=== PATIENT | female | born 1990 | race Caucasian/White ===

== ENCOUNTER 2019-03-25 15:45 | Outpatient (CLI) | payer MEDICAID, SELFPAY ==
--- NOTE | 2019-03-25 | US_ITS ---
WS: [id number] OB ultrasound, 03/25/2019 Clinical Data: LLQ CRAMPING Comparison: None. Findings: There is a single interuterine . Twin A: heart rate is 120 beats per minute. There is a yolk sac measuring 0.56 cm. The crown-rump length measured 0.7 cm. The estimated gestational age 6w4d is with an SUNIL of approximately 11/14/2019. Twin B: heart rate is 131 bpm. There is a yolk sac measuring 0.57 cm. [place]-rump length measured 0.72 cm. The estimated gestational age is 6 weeks 4 days with an SUNIL of approximately 11/14/2019. The left ovary measured 3.9 cm x 2.5 cm x 4.0 cm. The right ovary measured 1.7 cm x 2.5 cm x 3.5 cm. No ovarian cyst or masses are seen. 2. A: Estimated gestational age of 6w4d with an SUNIL of 11/14/2019.with a heart rate 120 beats per minute. 3. Fetus B: Estimated gestational age of 6 weeks 4 days with an SUNIL of 11/14/2019 the heart rate of 131 bpm. US/US OB <= 14 wk fetus twins Impression: 1. Twin .
== END 2019-03-25 15:46 | disposition home or self-care (01) ==
LOC: RAD 15:48
PROVIDERS: Family Provider Family Medicine; PCP Nurse Practitioner Family; Visit Provider Nurse Practitioner Family
DX: O26.851 Spotting complicating pregnancy, first trimester (principal); O30.001 Twin pregnancy, unspecified number of placenta and unspecified number of amniotic sacs, first trimester; Z3A.01 Less than 8 weeks gestation of pregnancy
CPT/HCPCS: 76801; 76802

== ENCOUNTER 2019-04-02 18:13 | Emergency (ER) | payer MEDICAID, SELFPAY ==
[2019-04-02 18:44] VITALS: BP 126/82; PULSE 80; RESP 17; TEMP 36.8; O2SAT 100; BMI 24.8
--- NOTE | 2019-04-02 19:02 | ED_ITS ---
Entered by Jagruti Melara, acting as scribe for Tiffanie Schmidt MD, [facility] [place] Apr 02, 2019 18:13 HPI - Headache General: Chief Complaint: Headache Stated Complaint: SENT BY URGENT CARE Time Seen by Provider: 04/02/19 19:01 Source: patient Mode of arrival: ambulatory Limitations: no limitations History of Present Illness: HPI Narrative: 28 yo Female presents to ED with complaint of headache. Pt states that she has had the headache for 4 days. Pt states that she woke up with a knot on her forehead this morning. Pt states that she is about 7 weeks 6 days with twins. Pt states that she was told last week that she has a hemorrhage between the two babies and she is going to see an EDUCATIONAL PSYCHOLOGY PROFESSOR in [place] on the 08 of April. 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 Pt states that she has a history of Pre- eclampsia. Pt states that she has a history of headaches but they are worse during . MD elicited complaint: headache Onset (ago): day(s) (4) Onset description: gradually Location: generalized Exacerbating factors: none Relieving factors: nothing Associated symptoms: Deny chest pain, fever(s), lightheadedness, nausea, rash or vomiting Treatments prior to arrival: acetaminophen Review of Systems General: Reports: 10 or more systems reviewed and unremarkable except in HPI and below Const: Denies: fever, chills or body aches Eyes: Denies: change in vision, blurry vision or blind spots ENMT: Denies: throat pain, enlarged tonsils, painful swallowing, hoarseness or mouth pain Card: Denies: chest pain, palpitations, irregular heart rhythm, swelling of feet/ankles or lightheadedness Resp: Denies: shortness of breath, productive cough or non-productive cough GI: Denies: abdominal pain, nausea or vomiting : Denies: flank pain, difficulty urinating, painful urination, urinary frequency or urinary urgency Musc: Denies: neck pain, back pain, extremity pain or extremity swelling Skin/Breast: Denies: rash, itching or redness Neuro: Reports: headache; Denies: numbness in extremities or weakness in extremities Endo: Denies: excessive urination, excessive thirst or tired all the time PFSH ED PFSH: Statuses (acute, chronic, etc) shown below reflect problem list status as previously entered and may not be historically accurate Social History Smoking and tobacco status: former smoker Physical Exam Const: COMMON NORMALS: no apparent distress, average body habitus, oriented x3, no limitations, healthy appearing, alert and well nourished HENMT: COMMON NORMALS: normocephalic, head/scalp atraumatic, hearing grossly normal bilaterally, external ears normal, EAC's normal, TM's normal bilaterally, external nose normal, nasal mucous membranes and turbinates normal, moist oral mucous membranes, oropharynx normal, dentition normal and gingiva normal HEAD & SCALP: normocephalic and atraumatic NOSE: external nose normal and nasal mucous membranes and turbinates normal EXTERNAL EAR: Yes external ears normal EXTERNAL AUDITORY CANAL: EAC's normal TYMPANIC MEMBRANE: TM's normal bilaterally Eye: COMMON NORMALS: PERRL, EOMs intact bilaterally, conjunctivae normal, no scleral icterus, no papilledema, normal visual tolentino by confrontation and fundi normal bilaterally CONJUNCTIVA: Yes conjunctivae normal PUPIL: Yes PERRL DIRECT OPHTHALMOSCOPY: Yes no papilledema and Yes fundi normal bilaterally Neck/C-Spine: COMMON NORMALS: full ROM, supple, no meningeal signs, no JVD and no carotid bruits Chest: COMMONS NORMALS: inspection of chest normal and palpation of chest no rmal Resp: COMMON NORMALS: normal respiratory effort, no retractions, no use of accessory muscles, clear to auscultation bilaterally and percussion normal AUSCULTATION: clear to auscultation bilaterally PERCUSSION: percussion normal Cardio: COMMON NORMALS: no JVD, regular rate, regular rhythm, S1 normal heart sound, S2 normal heart sound, no gallops, no clicks, no murmurs, no rub and peripheral pulses 2+ throughout RATE: regular rate RHYTHM: regular rhythm HEART SOUNDS: S1 normal and S2 normal PERIPHERAL PULSES: pulses 2+ th roughout GI: COMMON NORMALS: normal to inspection, nondistended, normoactive bowel sounds, soft to palpation, non-tender, no hepatosplenomegaly, no masses and no bruits PALPATION: Yes soft and Yes no hepatosplenomegaly : COMMON NORMALS: Yes no CVA tenderness BLADDER/KIDNEY EXAM: Yes no CVA tenderness Back/Pelvis: COMMON NORMALS: no CVA tenderness Extremity: COMMON NORMALS: normal to inspection, full ROM, normal capillary refill, no joint enlargement, no clubbing, cyanosis or edema, no calf tenderness and no pedal edema Neuro: COMMON NORMALS: oriented x3 SENSORIUM/ORIENTATION: Yes alert MENINGEAL SIGNS: Yes no meningeal signs Skin: COMMON NORMALS: no rashes or lesions noted, no wounds, skin turgor normal, no jaundice, no petechiae and no mottling GENERAL SKIN EXAM: no rashes or lesions noted and turgor normal Course Reevaluation(s): Reevaluation #1: Patient feels much better. Headache resolved. Discussed her labs with her including urinalysis that was negative for protein. Blood pressure normal. She is unlikely to have preeclampsia. Since she has chronic headaches this is likely a chronic headache. She is discharged to follow-up with her primary care provider. Time: 21:50 Vital Signs: Vital signs: Vital Signs Temperature 98.2 F 04/02/19 18:44 Pulse Rate 77 04/02/19 20:43 Respiratory Rate 16 04/02/19 20:43 Blood Pressure 124/70 04/02/19 20:43 Pulse Oximetry 100 04/02/19 20:43 MDM - Headache MDM Narrative: Medical decision making narrative: 28-year-old female patient who is 7 weeks with twins and presented with headaches. She has chronic headaches that she gets regularly but denies that they are migraines. She claims her headaches get worse in and this is an episode that has been persistent for the last 4 days. Evaluation in the ED was unremarkable including negative work-up for preeclampsia. Her headache was relieved with IV Benadryl and Reglan. She is discharged home on conservative measures and to follow-up with her campus safety officer as scheduled. She is also to follow-up with her primary care provider. Lab Data: Labs: Lab Results 04/02/19 04/02/19 04/02/19 Range/Units 19:55 19:55 20:15 WBC 6.8 (4.0-10.0) 10^3/ uL RBC 4.09 L (4.1-5.3) 10^6/u L Hgb 13.0 (11.5-15.3) g/dL Hct 38.8 (37.0-47.0) % MCV 94.9 (81-99) fL MCH 31.8 (28.0-34.0) pg MCHC 33.5 (30.0-36.0) g/dL RDW 13.0 (12.1-15.1) % Plt Count 197 (130-400) 10^3/c mm MPV 10.5 H (7.4-10.4) fL Neut % (Auto) 65.7 % Lymph % (Auto) 25.7 % [place] % (Auto) 7.2 % Eos % (Auto) 1.0 % Baso % (Auto) 0.1 % Neut # (Auto) 4.4 (1.8-7.7) 10^3/u L Lymph # (Auto) 1.7 (0.8-4.8) 10^3/u L [place] # (Auto) 0.5 (0.2-0.9) 10^3/u L Eos # (Auto) 0.1 (0.0-0.8) 10^3/u L Baso # (Auto) 0.0 (0.0-0.1) 10^3/u L Nucleated RBC % (a uto) 0 % Nucleated RBCs # 0.0 /100WBC Sodium 137 (136-145) mmol/L Potassium 3.5 (3.5-5.1) mmol/L Chloride 100 (98-107) mmol/L Carbon Dioxide 27 (22-29) mmol/L Anion Gap 13.5 (5-19) BUN 7 (6-20) mg/dL Creatinine 0.5 (0.5-0.9) mg/dL GFR Calculation 144.9 H (90-130) mL/min Glucose 70 L (74-109) mg/dL Calcium 9.9 (8.6-10.0) mg/Dl Total Bilirubin 0.3 (0.15-1.2) mg/dL AST 16 (0-32) U/L ALT 10 (0-33) U/L Alkaline Phosphata se 60 (35-105) IU/L Total Protein 7.9 (6.6-8.7) g/dL Albumin 4.4 (3.5-5.2) g/dL Globulin 3.5 (1.3-4.6) g/dL Urine Color Straw (Yellow) Urine Appearance Clear (CLEAR) Urine pH 5 (5-7) Ur Specific Gravit y 1.005 (1.005-1.030) Urine Protein Neg (Negative) Urine Glucose (UA) Norm (Normal) Urine Ketones Negative (Negative) Urine Occult Blood Neg (Negative) Urine Nitrate Negative (Negative) Urine Bilirubin Neg (NEGATIVE) Urine Urobilinogen Norm (Negative) mg/dL Ur Leukocyte [place] ase Negative (Negative) Discharge Plan Discharge Patient Disposition: Home, Self-Care Clinical Impression: Headache Qualifiers: Headache type: other headache syndrome Qualified Code(s): G44.89 - Other headache syndrome Condition: Stable Prescriptions: No Action prenat.vits,junie,[id number] Tablet 1 tab PO QDAY RF: 0 acetaminophen [Tylenol] 325 mg capsule 650 mg PO Q6H PRNRF: 0 Discharge Orders: Discharge Order (Routine); Ordered 04/02/19 Ordered By: Tiffanie Schmidt Referrals: Armin Frazier Jr, MD [Family Provider] - 1-3 days Blackburn,HORACE Greer [Primary Care Provider] - Activity Restrictions/Additional Instructions: Return for any new or worsening symptoms. Follow-up with your campus safety officer as scheduled. Drink plenty of fluids to keep well-hydrated. Have plenty of rest. Coding Level of Care Code ED Fleet Operations Manager for Chg Fwd Exam Problem Focused The documentation recorded by the Kelton perez Carmen, accurately reflects the service I personally performed and the decisions made by Roxana kate Adegoke I, MD, [facility] [place] Apr 02, 2019 18:13
[2019-04-02 20:15] LABS: Basophils % 0.1 %; Eosinophils # 0.1 10^3/uL (0.0-0.8); Hematocrit 38.8 % (37.0-47.0); Lymphocytes # 1.7 10^3/uL (0.8-4.8); Lymphocytes % 25.7 %; Mean Corpuscular HGB Conc 33.5 g/dL (30.0-36.0); Mean Corpuscular Hemoglobin 31.8 pg (28.0-34.0); Mean Corpuscular Volume 94.9 fL (81-99); Mean Platelet Volume 10.5 fL (7.4-10.4); Monocytes # 0.5 10^3/uL (0.2-0.9); Monocytes % 7.2 %; Neutrophils # 4.4 10^3/uL (1.8-7.7); Neutrophils % 65.7 %; Nucleated Red Blood Cells % 0 %; Platelet Count 197 10^3/cmm (130-400); Red Blood Count 4.09 10^6/uL (4.1-5.3); White Blood Count 6.8 10^3/uL (4.0-10.0)
[2019-04-02 20:30] LABS: Alanine Aminotransferase 10 U/L (0-33); Albumin Level 4.4 g/dL (3.5-5.2); Alkaline Phosphatase 60 IU/L (35-105); Anion Gap 13.5 (5-19); Aspartate Amino Transferase 16 U/L (0-32); Blood Urea Nitrogen 7 mg/dL (6-20); Calcium 9.9 mg/Dl (8.6-10.0); Carbon Dioxide 27 mmol/L (22-29); Chloride 100 mmol/L (98-107); Globulin 3.5 g/dL (1.3-4.6); Glomerular Filtration Rate 144.9 mL/min (90-130); Glucose 70 mg/dL (74-109); Potassium 3.5 mmol/L (3.5-5.1); Sodium 137 mmol/L (136-145); Total Bilirubin 0.3 mg/dL (0.15-1.2); Total Protein 7.9 g/dL (6.6-8.7)
[2019-04-02 20:36] LABS: Add Urine Microscopic? NO
[2019-04-02 20:39] LABS: Bilirubin Urine Neg (NEGATIVE); Blood Urine Neg (Negative); Glucose Urine UA Norm (Normal); Ketones Urine Negative (Negative); Leukocyte Esterase Urine Negative (Negative); Nitrate Urine Negative (Negative); Protein Urine Neg (Negative); Specific Gravity, Urine 1.005 (1.005-1.030); Urine Appearance Clear (CLEAR); Urine Color Straw (Yellow); Urobilinogen Urine Norm (Negative); pH Urine 5 (5-7)
[2019-04-02 20:43] VITALS: BP 124/70; PULSE 77; RESP 16; O2SAT 100
[2019-04-02] MEDS: diphenhydrAMINE 50 mg/mL SDV 1mL 25 MG IVP (21:03)
[2019-04-02] MEDS: metoclopramide 5 mg/mL SDV 2 mL 10 MG IVP (21:04)
[2019-04-02] MEDS: sodium chloride 0.9% 1,000 ML 999 ML IV (21:07)
[2019-04-02 22:02] VITALS: BP 111/58; PULSE 78; RESP 18; O2SAT 98
== END 2019-04-02 22:03 | disposition home or self-care (01) ==
PROVIDERS: Emergency Provider Family Medicine; Family Provider Family Medicine; PCP Nurse Practitioner Family
DX: G44.89 Other headache syndrome (principal); Z87.891 Personal history of nicotine dependence
CPT/HCPCS: 36415; 80053; 81003; 85025; 96360; 96374; 99282; J1200; J2765; J7030

== ENCOUNTER 2020-07-16 14:27 | Outpatient (CLI) | payer MEDICAID, SELFPAY ==
--- NOTE | 2020-07-16 14:34 | USCV_ITS ---
Mary Tsai Age: 30 Gender: F : 1990 Exam Date: 07/16/2020 14:50 Ordering Phys: Zoey Blackburn INSURANCE RISK MANAGER Technologist: Nury Wheeler Exam Location: [facility] [place]_ Indication: LLE PAIN AND SWELLING HISTORY: Lower extremity pain. Lower extremity swelling. PROCEDURES: Venous duplex imaging was performed in only the left lower extremity. The following venous structures were evaluated: common femoral vein, profunda vein, proximal portion of the greater saphenous vein, superficial femoral vein, and the popliteal vein. In addition, the posterior tibial and peroneal trunk were evaluated. Serial compression, augmentation maneuvers, and spectral Doppler flow evaluation were performed. FINDINGS: No evidence of DVT seen in any vessel visualized at this time. Azael Rico MD (Electronically Signed) Final Date: 16 Jul 2020 17:53 S
== END 2020-07-16 14:28 | disposition home or self-care (01) ==
LOC: RAD 14:31
PROVIDERS: PCP Nurse Practitioner Family; Visit Provider Nurse Practitioner Family
DX: M79.605 Pain in left leg (principal); M79.662 Pain in left lower leg; I83.813 Varicose veins of bilateral lower extremities with pain
CPT/HCPCS: 93971

== ENCOUNTER → 2022-10-25 09:55 | Outpatient (BNVA) | payer MEDICAID, SELFPAY | PROVIDERS: PCP Nurse Practitioner Family; Visit Provider Nurse Practitioner Family | DX: R39.9 Unspecified symptoms and signs involving the genitourinary system (principal); N30.01 Acute cystitis with hematuria | CPT/HCPCS: 81000 ==

== ENCOUNTER 2023-06-04 15:53 | Emergency (ER) | payer OTHER, MEDICAID, SELFPAY ==
[2023-06-04 15:56] VITALS: BP 132/87; PULSE 94; RESP 18; TEMP 36.6; O2SAT 100; BMI 28.1
--- NOTE | 2023-06-04 16:09 | ED_ITS ---
HPI - General Adult 2 General: Chief complaint: General Medical Stated complaint: body aches Time Seen by Provider: 06/04/23 16:03 History of Present Illness: 33-year-[facility] that she has generalized fatigue and malaise. She has been seen by Dr. Coronel on 04/23/2023 for polyarthralgia. She states she has been seen by rheumatology clinic and is currently on a low-dose of steroid. She states she has increased generalized myalgias from head to toe today. She states she also has had a 10 pound weight gain. The patient has provided me her recent lab results and it does appear that she is positive for a history of ehrlichiosis. Associated symptoms: Reports malaise; Deny chest pain or dyspnea Review of Systems 2 General: Reports: 10 or more systems reviewed and unremarkable except in HPI and below Const: Reports: fatigue and malaise; Denies: fever(s) or chills Card: Denies: chest pain Resp: Denies: dyspnea PFSH ED 2 PFSH: Social History Smoking and tobacco/nicotine status: former use of tobacco/nicotine Physical Exam 2 Narrative: EXAM NARRATIVE: Constitutional: the patient appears well nourished and of normal development. Vital signs as documented. No acute distress at present. Alert and oriented-to person, place, time and situation. Head, eyes, ears, nose, mouth, throat: Normocephalic, atraumatic. Pupils-equal, round, reactive to light. No scleral icterus. Normal-appearing external ears. Normal appearing nasal turbinates, no drainage. No obvious oral lesions, posterior oropharynx without erythema or exudates. Neck: Supple, trachea is midline, no lymphadenopathy, no jugular venous distension, thyromegaly, or carotid bruits. Carotid upstrokes are brisk bilaterally. Lungs: clear to auscultation to all lung tolentino. Symmetrical rise and fall of chest, no obvious signs of increased work of breathing at present. Cardiac: Regular rate and rhythm, positive S1, S2. No murmurs, rubs or gallops that I can appreciate Abdomen: Soft, non-tender to palpation, normal active bowel sounds to all quadrants. No palpable masses, no organomegaly and abdominal bruits. Extremities: 2+ pulses in the upper extremities that are equal bilaterally, 2+ pulses in the lower extremities that are equal bilaterally. Non-edematous. Moves all extremities well, sensation to all extremities are noted. Skin: Warm, dry, intact. Course 2 Vital Signs: Vital signs: Vital Signs Temperature 97.8 F 06/04/23 15:56 Pulse Rate 77 06/04/23 17:54 Respiratory Rate 18 06/04/23 15:56 Blood Pressure 136/84 06/04/23 17:54 Pulse Oximetry 99 06/04/23 17:54 Oxygen Delivery Me thod Room Air 06/04/23 17:54 MDM - General Adult Medical Decision Making Physical exam completed and documented I will obtain a CBC and a CMP urinalysis and urine drug screen and provide the patient Toradol. Differential Diagnosis Medication side effect of steroids, rheumatoid arthritis, dehydration, electrolyte abnormality. Medical Records I reviewed the patient's medical records. Lab Data I reviewed the patient's lab results. 06/04/23 16:58 06/04/23 16:58 Laboratory Results WBC 4.88 10^3/uL (3.29-11.43) 06/04/23 16:58 RBC 4.19 10^6/uL (3.85-5.65) 06/04/23 16:58 Hgb 12.60 g/dL (11.27-16.99) 06/04/23 16:58 Hct 38.5 % (36-47) 06/04/23 16:58 MCV 91.9 fl (85-98) 06/04/23 16:58 MCH 30.1 pg (27-33) 06/04/23 16:58 MCHC 32.7 g/dL (30-55) 06/04/23 16:58 RDW 12.8 % (12.1-15.1) 06/04/23 16:58 Plt Count 168 10^3/cmm (157-399) 06/04/23 16:58 MPV 10.2 fL (7.4-10.4) 06/04/23 16:58 Neut % (Auto) 85.8 % 06/04/23 16:58 Lymph % (Auto) 11.3 % 06/04/23 16:58 [place] % (Auto) 2.5 % 06/04/23 16:58 Eos % (Auto) 0.2 % 06/04/23 16:58 Baso % (Auto) 0.0 % 06/04/23 16:58 Neut # (Auto) 4.19 10^3/uL (1.8-7.7) 06/04/23 16:58 Lymph # (Auto) 0.6 10^3/uL (0.8-4.8) L 06/04/23 16:58 [place] # (Auto) 0.1 10^3/uL (0.2-0.9) L 06/04/23 16:58 Eos # (Auto) 0.0 10^3/uL (0.0-0.8) 06/04/23 16:58 Baso # (Auto) 0.0 10^3/uL (0.0-0.1) 06/04/23 16:58 Nucleated RBC % (auto) 0 % 06/04/23 16:58 Nucleated RBCs # 0.0 /100WBC 06/04/23 16:58 Sodium 140 mmol/L (136-145) 06/04/23 16:58 Potassium 4.4 mmol/L (3.5-5.1) 06/04/23 16:58 Chloride 106 mmol/L (98-107) 06/04/23 16:58 Carbon Dioxide 25 mmol/L (22-29) 06/04/23 16:58 Anion Gap 13.4 (5-19) 06/04/23 16:58 BUN 13 mg/dL (6-20) 06/04/23 16:58 Creatinine 0.7 mg/dL (0.5-0.9) 06/04/23 16:58 GFR Calculation 95.2 mL/min (90-130) 06/04/23 16:58 Glucose 104 mg/dL (65-115) 06/04/23 16:58 Calculated Osmolality 290 mOsm/kg (285-295) 06/04/23 16:58 Calcium 9.3 mg/dL (8.5-10.5) 06/04/23 16:58 Total Bilirubin 0.2 mg/dL (0.15-1.2) 06/04/23 16:58 AST 17 U/L (0-32) 06/04/23 16:58 ALT 13 U/L (0-33) 06/04/23 16:58 Alkaline Phosphatase 75 U/L (35-105) 06/04/23 16:58 Total Protein 7.1 g/dL (6.6-8.7) 06/04/23 16:58 Albumin 3.8 g/dL (3.5-5.2) 06/04/23 16:58 Globulin 3.3 g/dL (1.3-4.6) 06/04/23 16:58 HCG, Qual Negative (Negative) 06/04/23 18:03 Urine Color Straw (Yellow) 06/04/23 18:03 Urine Appearance Sl hazy (CLEAR) A 06/04/23 18:03 Urine pH 5 (5-7) 06/04/23 18:03 Ur Specific [place] 1.010 (1.005-1.030) 06/04/23 18:03 Urine Protein Neg (Negative) 06/04/23 18:03 Urine Glucose (UA) Norm (Normal) 06/04/23 18:03 Urine Ketones Negative (Negative) 06/04/23 18:03 Urine Blood 2+ (Negative) H 06/04/23 18:03 Urine Nitrate Negative (Negative) 06/04/23 18:03 Urine Bilirubin Neg (Negative) 06/04/23 18:03 Urine Urobilinogen Norm mg/dL (Negative) 06/04/23 18:03 Ur Leukocyte Esterase 1+ (Negative) H 06/04/23 18:03 Urine RBC 5-10 /hpf (0-2) H 06/04/23 18:03 Urine WBC 5-10 /hpf (0-5) H 06/04/23 18:03 Ur Squamous Epith Cells 10-15 /hpf (0-5) H 06/04/23 18:03 Amorphous Sediment Not Reportable 06/04/23 18:03 Urine Bacteria 2+ /hpf (NONE) H 06/04/23 18:03 Urine Mucus 1+ /hpf 06/04/23 18:03 Urine Opiates Screen Negative ng/mL (Negative) 06/04/23 18:03 Ur Barbiturates Screen Negative ng/mL (Negative) 06/04/23 18:03 Ur Phencyclidine Scrn Negative ng/mL (Negative) 06/04/23 18:03 Ur Amphetamines Screen Negative ng/mL (Negative) 06/04/23 18:03 U Benzodiazepines Scrn Negative ng/mL (Negative) 06/04/23 18:03 Urine Cocaine Screen Negative ng/mL (Negative) 06/04/23 18:03 U Marijuana (THC) Screen Negative ng/mL (Negative) 06/04/23 18:03 No radiology studies performed this visit Discharge Plan Discharge Patient Disposition: Home Clinical Impression: Polyarthralgia, Ehrlichiosis chafeensis (E. chafeensis) Condition: Stable Prescriptions: New cephalexin 500 mg capsule 500 mg PO BID 7 Days Qty: 14 0RF No Action ibuprofen 800 mg tablet 800 mg PO Q8H PRN (Reason: pain) Qty: 30 0RF prednisone 5 mg tablet 5 mg PO QAM Rx Instructions: (HAS 2 DAYS LEFT OF 06/04/23 WAS ON TITRATING DOSE) Tylenol Arthritis 650 mg Tablet Extended Release 1,300 mg PO BEDTIME Discharge Orders: Discharge ED (Routine); Ordered 06/04/23 Ordered By: Medardo Schwartz Referrals: Zoey Blackburn FNP [Primary Care Provider] - Discharge Diet: Advance as tolerated Discharge Activity: Resume usual activity Patient Instructions: Opioid Safety, Pain Management Activity Restrictions/Additional Instructions: Activity Restrictions/Additional Instructions: Thank you for choosing [facility] for your healthcare needs today. Please realize that you were seen in the Emergency Department and that we are providing you with an emergency medical screening exam and this may not be a complete and all inclusive of all the testing and or medical work-up that you may need to determine your ailment or severity of your illness. It is very important that you follow-up as instructed with your Primary care provider or Specialist for additional evaluation and to discuss your medical treatment plan. Coding Level of Care Code ED Security Alarm Technician for Lidia Fan
[2023-06-04] MEDS: lactated ringers 1,000 ML 999 ML IV (16:55)
[2023-06-04] MEDS: dexamethasone 10 mg/mL INJ IVP (16:55)
[2023-06-04 17:06] LABS: Eosinophils % 0.2 %; Hematocrit 38.5 % (36-47); Lymphocytes # 0.6 10^3/uL (0.8-4.8); Lymphocytes % 11.3 %; Mean Corpuscular HGB Conc 32.7 g/dL (30-55); Mean Corpuscular Hemoglobin 30.1 pg (27-33); Mean Corpuscular Volume 91.9 fl (85-98); Mean Platelet Volume 10.2 fL (7.4-10.4); Monocytes # 0.1 10^3/uL (0.2-0.9); Monocytes % 2.5 %; Neutrophils # 4.19 10^3/uL (1.8-7.7); Neutrophils % 85.8 %; Nucleated Red Blood Cells % 0 %; Platelet Count 168 10^3/cmm (157-399); Red Blood Count 4.19 10^6/uL (3.85-5.65); Red Cell Distribution Width 12.8 % (12.1-15.1); White Blood Count 4.88 10^3/uL (3.29-11.43)
[2023-06-04 17:26] LABS: Alanine Aminotransferase 13 U/L (0-33); Albumin Level 3.8 g/dL (3.5-5.2); Alkaline Phosphatase 75 U/L (35-105); Anion Gap 13.4 (5-19); Aspartate Amino Transferase 17 U/L (0-32); Blood Urea Nitrogen 13 mg/dL (6-20); Calcium 9.3 mg/dL (8.5-10.5); Carbon Dioxide 25 mmol/L (22-29); Chloride 106 mmol/L (98-107); Creatinine Clr Calc Pharmacy 123.2833; Globulin 3.3 g/dL (1.3-4.6); Glomerular Filtration Rate 95.2 mL/min (90-130); Glucose 104 mg/dL (65-115); Osmolality Calculated 290 mOsm/kg (285-295); Potassium 4.4 mmol/L (3.5-5.1); Sodium 140 mmol/L (136-145); Total Bilirubin 0.2 mg/dL (0.15-1.2); Total Protein 7.1 g/dL (6.6-8.7)
[2023-06-04 17:54] VITALS: BP 136/84; PULSE 77; O2SAT 99
[2023-06-04 18:16] LABS: Blood Urine 2+ (Negative); Glucose Urine UA Norm (Normal); Ketones Urine Negative (Negative); Nitrate Urine Negative (Negative); Protein Urine Neg (Negative); Urine Appearance SL Hazy (CLEAR); Urine Color Straw (Yellow); pH Urine 5 (5-7)
[2023-06-04 18:17] LABS: Add Urine Culture? No; Add Urine Microscopic? YES; Bacteria Urine 2+ /hpf; Bilirubin Urine Neg (Negative); Leukocyte Esterase Urine 1+ (Negative); Mucus Urine 1+ /hpf; Urobilinogen Urine Norm (Negative)
[2023-06-04 18:20] LABS: Amphetamines Screen Urine Negative (Negative); Barbiturates Screen Urine Negative (Negative); Benzodiazepines Screen Urine Negative (Negative); Cocaine Screen Urine Negative (Negative); Opiate Screen Urine Negative (Negative); PCP Screen Urine Negative (Negative); THC Screen Urine Negative (Negative)
[2023-06-04 18:34] LABS: HCG Qualitative Urine. Negative (Negative)
== END 2023-06-04 18:10 | disposition home or self-care (01) ==
PROVIDERS: Emergency Provider Internal Medicine; PCP Nurse Practitioner Family
DX: M25.50 Pain in unspecified joint (principal); A77.41 Ehrlichiosis chaffeensis [E. chaffeensis]; Z87.891 Personal history of nicotine dependence
CPT/HCPCS: 80053; 80306; 81001; 81025; 85025; 96374; 99284; J1100; J7120

== ENCOUNTER 2023-07-10 12:11 | Emergency (ER) | payer MEDICAID, SELFPAY ==
--- NOTE | 2023-07-10 12:19 | ECG_ITS ---
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 Measurements Intervals [place] Rate: 95 P: 67 [place]: 147 QRS: 76 QRSD: 82 T: 73 QT: 343 QTc: 432 Interpretive Statements SINUS RHYTHM No previous ECG available for comparison Electronically Signed On 07-10-2023 22:50:00 CDT by Michael Santamaria M.D. [email or web address]
[2023-07-10 12:24] VITALS: BP 131/88; PULSE 89; RESP 18; TEMP 36.6; O2SAT 98; BMI 25.9
--- NOTE | 2023-07-10 12:27 | XRR_ITS ---
PROCEDURE INFORMATION: Exam: XR Chest Exam date and time: 07/10/2023 12:58 PM Age: 33 years old Clinical indication: Pain; Angina pectoris; Additional info: Cp TECHNIQUE: Imaging protocol: Radiologic exam of the chest. Views: 1 view. COMPARISON: CT kidney stone [id number] 09/24/2018 9:57 AM FINDINGS: Lungs: Mild bibasilar platelike atelectasis versus scarring. No consolidation. Pleural spaces: Unremarkable. No pleural effusion. No pneumothorax. Heart/Mediastinum: Unremarkable. No cardiomegaly. Bones/joints: Unremarkable. XR/XR chest 1V portable [id number] IMPRESSION: No acute findings.
[2023-07-10 13:16] LABS: Basophils % 0.2 %; Eosinophils % 0.6 %; Hematocrit 36.8 % (36-47); Lymphocytes # 0.7 10^3/uL (0.8-4.8); Lymphocytes % 11.3 %; Mean Corpuscular HGB Conc 32.9 g/dL (30-55); Mean Corpuscular Hemoglobin 30.3 pg (27-33); Mean Platelet Volume 9.6 fL (7.4-10.4); Monocytes # 0.2 10^3/uL (0.2-0.9); Monocytes % 2.4 %; Neutrophils # 5.28 10^3/uL (1.8-7.7); Neutrophils % 84.9 %; Nucleated Red Blood Cells % 0 %; Platelet Count 262 10^3/cmm (157-399); Red Cell Distribution Width 14.2 % (12.1-15.1); White Blood Count 6.22 10^3/uL (3.29-11.43)
[2023-07-10 13:37] LABS: Troponin(5th) Baseline < 6 ng/L (0-10)
[2023-07-10 13:38] LABS: Alanine Aminotransferase 15 U/L (0-33); Albumin Level 3.7 g/dL (3.5-5.2); Alkaline Phosphatase 73 U/L (35-105); Anion Gap 14.2 (5-19); Aspartate Amino Transferase 17 U/L (0-32); Blood Urea Nitrogen 11 mg/dL (6-20); Calcium 9.4 mg/dL (8.5-10.5); Carbon Dioxide 26 mmol/L (22-29); Chloride 98 mmol/L (98-107); Creatinine Clr Calc Pharmacy 166.2985; Globulin 3.9 g/dL (1.3-4.6); Glomerular Filtration Rate 140.4 mL/min (90-130); Glucose 107 mg/dL (65-115); Lipase 41 U/L (13-60); Osmolality Calculated 278 mOsm/kg (285-295); Potassium 4.2 mmol/L (3.5-5.1); Sodium 134 mmol/L (136-145); Total Bilirubin 0.4 mg/dL (0.15-1.2); Total Protein 7.6 g/dL (6.6-8.7)
--- NOTE | 2023-07-10 13:42 | ED_ITS ---
HPI - General Adult 2 General: Chief complaint: General Medical Stated complaint: knot on chest, chest pressure Time Seen by Provider: 07/10/23 12:54 Source: patient and family Mode of arrival: ambulatory Limitations: no limitations History of Present Illness: Patient is a 33-year-old female presents to ED today along with her family for a few various complaints. Patient states over the past several months she has been having diffuse joint pains. Patient has recently been evaluated by rheumatology and diagnosed with lupus and rheumatoid arthritis. She has been started on hydroxychloroquine as well as methotrexate. She also at some point has been diagnosed with ehrlichiosis. She has seen infectious disease as well. These evaluations have been through [facility]. Patient states since starting the methotrexate she feels worse. She is developed a few sores in her mouth and on her face. She states she normally has acid reflux but after starting this medication it is significantly worse. She is on 20mg daily pantoprazole without any relief. She is having acid reflux/burning/chest pain worse with lying down. Onset (ago): day(s) Pain Consistency: constant Relieving factors: none Exacerbating factors: other (new medications) Associated symptoms: Reports chest pain; Deny dyspnea, headache(s), nausea, rash, palpitations, syncope or vomiting Treatments prior to arrival: none Review of Systems 2 Const: Reports: other (diffuse joint pains); Denies: fever(s), chills or body aches Eyes: Denies: change in vision, blurry vision, photophobia, floaters or seeing flashes ENMT: Reports: throat pain, mouth pain and oral sores Card: Reports: chest pain; Denies: palpitations, irregular heart rhythm, edema, swelling of feet/ankles, lightheadedness, syncope, pre-syncope, dyspnea on exertion, orthopnea, leg pain with exertion or acrocyanosis Resp: Denies: dyspnea, productive cough, non-productive cough or pain on inspiration GI: Reports: heartburn; Denies: abdominal pain, nausea, vomiting, diarrhea, GI cramping, hematochezia or melena : Denies: flank pain, difficulty voiding, dysuria, urinary frequency, urinary urgency or urinary hesitancy Musc: Reports: joint pain (diffuse); Denies: neck pain, back pain, extremity pain, extremity swelling or joint swelling Skin/Breast: Denies: rash Neuro: Denies: headache(s), numbness in extremities, weakness in extremities, sensory changes or dizziness PFSH ED 2 PFSH: Social History Smoking and tobacco/nicotine status: former use of tobacco/nicotine Physical Exam 2 Const: COMMON NORMALS: average body habitus, patient oriented x3, no limitations, healthy appearing, alert and well nourished GENERAL APPEARANCE: cooperative ORIENTATION/CONSCIOUSNESS: Yes awake, Yes oriented to person, Yes oriented to place and Yes oriented to time HENMT: COMMON NORMALS: normocephalic, atraumatic and Normal external nose present HEAD & SCALP: normal to inspection, normocephalic and atraumatic F CAROL & SINUS: other (few scattered sores on face) NOSE: Normal external nose present MOUTH: lip normal and other (few small sores distal lateral tongue; L tonsillar pillar) TEETH & GINGIVA: Yes poor dentition THROAT: tonsils normal Eye: COMMON NORMALS: Equal, round and reactive pupils present and EOMs intact bilaterally GENERAL EYE: appearance normal, both eyes and all related structures and normal light reflex PUPIL: Yes Equal, round and reactive pupils present DIRECT OPHTHALMOSCOPY: Yes normal light reflex Neck/C-Spine: COMMON NORMALS: full ROM, no lymphadenopathy, supple and no meningeal signs Chest: COMMONS NORMALS: normal inspection of the chest and normal palpation of entire chest wall Resp: COMMON NORMALS: normal respiratory effort and clear to auscultation bilaterally AUSCULTATION: clear to auscultation bilaterally Cardio: COMMON NORMALS: regular rate and regular rhythm RATE: regular rate RHYTHM: regular rhythm GI: COMMON NORMALS: Normal to inspection, nondistended, normoactive bowel sounds present, Soft to palpation, non-tender, No hepatosplenomegaly present and no masses PALPATION: Yes Soft to palpation and Yes No hepatosplenomegaly present : COMMON NORMALS: Yes no CVA tenderness BLADDER/KIDNEY EXAM: Yes no CVA tenderness Back/Pelvis: COMMON NORMALS: no CVA tenderness and thoracic and lumbar spine normal to inspection Extremity: COMMON NORMALS: capillary refill normal; negative for no joint enlargement and negative for no clubbing, cyanosis or edema NARRATIVE EXTREMITY EXAM: reporting diffuse joint pains Neuro: RAMSES COMA SCALE: document GCS findings [place] coma scale eye opening: Spontaneous [place] coma scale verbal response: Orientated [place] coma scale motor response: [place] commands Ramses coma scale total score: 15 COMMON NORMALS: patient oriented x3, moves all extremities, no focal motor deficits and no sensory deficits noted SENSORIUM/ORIENTATION: Yes alert, Yes oriented to person, Yes oriented to place and Yes oriented to time MENINGEAL SIGNS: Yes no meningeal signs Skin: COMMON NORMALS: no rashes or lesions noted GENERAL SKIN EXAM: no rashes or lesions noted Course 2 Vital Signs: Vital signs: Vital Signs Temperature 97.9 F 07/10/23 12:24 Pulse Rate 89 07/10/23 12:24 Respiratory Rate 18 07/10/23 12:24 Blood Pressure 131/88 07/10/23 12:24 Pulse Oximetry 98 07/10/23 12:24 Oxygen Delivery Me thod Room Air 07/10/23 12:24 MDM - General Adult Medical Decision Making Symptoms most likely due to a stomatitis/mucositis/esophagitis from her methotrexate use. Vital signs are stable. Her blood work is unremarkable. CXR is normal. EKG showing sinus rhythm. Recommend follow-up with her engine repairer to discuss whether they to feel like symptoms are related to medicine. She can also continue to follow-up with her primary care provider. Return ED precautions given. Lab Data 07/10/23 13:09 07/10/23 13:09 Radiology Impressions Chest X-Ray 07/10/23 12:27 IMPRESSION: No acute findings. Laboratory Results WBC 6.22 10^3/uL (3.29-11.43) 07/10/23 13:09 RBC 4.00 10^6/uL (3.85-5.65) 07/10/23 13:09 Hgb 12.10 g/dL (11.27-16.99) 07/10/23 13:09 Hct 36.8 % (36-47) 07/10/23 13:09 MCV 92.0 fl (85-98) 07/10/23 13:09 MCH 30.3 pg (27-33) 07/10/23 13:09 MCHC 32.9 g/dL (30-55) 07/10/23 13:09 RDW 14.2 % (12.1-15.1) 07/10/23 13:09 Plt Count 262 10^3/cmm (157-399) 07/10/23 13:09 MPV 9.6 fL (7.4-10.4) 07/10/23 13:09 Neut % (Auto) 84.9 % 07/10/23 13:09 Lymph % (Auto) 11.3 % 07/10/23 13:09 [place] % (Auto) 2.4 % 07/10/23 13:09 Eos % (Auto) 0.6 % 07/10/23 13:09 Baso % (Auto) 0.2 % 07/10/23 13:09 Neut # (Auto) 5.28 10^3/uL (1.8-7.7) 07/10/23 13:09 Lymph # (Auto) 0.7 10^3/uL (0.8-4.8) L 07/10/23 13:09 [place] # (Auto) 0.2 10^3/uL (0.2-0.9) 07/10/23 13:09 Eos # (Auto) 0.0 10^3/uL (0.0-0.8) 07/10/23 13:09 Baso # (Auto) 0.0 10^3/uL (0.0-0.1) 07/10/23 13:09 Nucleated RBC % (auto) 0 % 07/10/23 13:09 Nucleated RBCs # 0.0 /100WBC 07/10/23 13:09 Sodium 134 mmol/L (136-145) L 07/10/23 13:09 Potassium 4.2 mmol/L (3.5-5.1) 07/10/23 13:09 Chloride 98 mmol/L (98-107) 07/10/23 13:09 Carbon Dioxide 26 mmol/L (22-29) 07/10/23 13:09 Anion Gap 14.2 (5-19) 07/10/23 13:09 BUN 11 mg/dL (6-20) 07/10/23 13:09 Creatinine 0.5 mg/dL (0.5-0.9) 07/10/23 13:09 GFR Calculation 140.4 mL/min (90-130) H 07/10/23 13:09 Glucose 107 mg/dL (65-115) 07/10/23 13:09 Calculated Osmolality 278 mOsm/kg (285-295) L 07/10/23 13:09 Calcium 9.4 mg/dL (8.5-10.5) 07/10/23 13:09 Total Bilirubin 0.4 mg/dL (0.15-1.2) 07/10/23 13:09 AST 17 U/L (0-32) 07/10/23 13:09 ALT 15 U/L (0-33) 07/10/23 13:09 Alkaline Phosphatase 73 U/L (35-105) 07/10/23 13:09 Troponin T Baseline < 6 ng/L (0-10) 07/10/23 13:09 Total Protein 7.6 g/dL (6.6-8.7) 07/10/23 13:09 Albumin 3.7 g/dL (3.5-5.2) 07/10/23 13:09 Globulin 3.9 g/dL (1.3-4.6) 07/10/23 13:09 Lipase 41 U/L (13-60) 07/10/23 13:09 All radiology interpretation(s) finalized by discharge Discharge Plan Discharge Patient Disposition: Home Clinical Impression: Stomatitis and mucositis, Esophagitis Condition: Stable Prescriptions: New Carafate 1 gram tablet 1 g PO TID 14 Days Qty: 42 0RF Changed pantoprazole 20 mg Tablet,Delayed Release (Dr/Ec) 20 mg PO BID Qty: 30 0RF No Action prednisone 10 mg tablet 10 mg PO DAILY methotrexate sodium 2.5 mg Tablet 2.5 mg PO Q7D Rx Instructions: ON MONDAY folic acid 1 mg Tablet 1 mg PO DAILY hydroxychloroquine 200 mg Tablet See Rx Instructions .ROUTE .COMPLEX Rx Instructions: TAKE 1 TABLET BY MOUTH ONCE DAILY FOR 7 DAYS. IF TOLERATED WITHOUTH SIDE EFFECTS, INCREASE TO 1 TABLET TWICE DAILY. Vitamin D3 25 mcg (1,000 unit) Capsule 75 mcg PO DAILY Fish Oil 1,000 mg (120 mg-180 mg) Capsule 1 cap PO DAILY acetaminophen [Tylenol Arthritis] 650 mg Tablet Extended Release 1,300 mg PO BEDTIME Discharge Orders: Discharge ED (Routine); Ordered 07/10/23 Ordered By: Jossie Higuera Referrals: Alexey,Zoey CARPET SEWING MACHINE OPERATOR [Primary Care Provider] - Activity Restrictions/Additional Instructions: As we discussed I would like you to follow-up with your engine repairer as soon as possible to go over medication. Coding Level of Care Code ED Seed Sorter for Lidia Fan
[2023-07-10] MEDS: lidocaine 2% viscous 15 ML, aluminum-mag hydrox-simethicon 30 ML, sucralfate oral liq 1 GM PO (14:12)
--- NOTE | 2023-07-10 14:21 | ECG_ITS ---
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 Measurements Intervals [place] Rate: 84 P: 44 MS: 156 QRS: 76 QRSD: 89 T: 70 QT: 357 QTc: 424 Interpretive Statements SINUS RHYTHM Compared to ECG 07/10/2023 12:19:08 No significant changes Electronically Signed On 07-10-2023 22:54:02 CDT by Michael Santamaria M.D. [email or web address]
== END 2023-07-10 14:41 | disposition home or self-care (01) ==
PROVIDERS: Emergency Medicine; Emergency Provider Physician Assistant; PCP Nurse Practitioner Family
DX: K12.1 Other forms of stomatitis (principal); K12.30 Oral mucositis (ulcerative), unspecified; K20.90 Esophagitis, unspecified without bleeding; Z87.891 Personal history of nicotine dependence
CPT/HCPCS: 36415; 71045; 80053; 83690; 84484; 85025; 93005; 99285